=== PATIENT | female | born 2000 | race African-American/Black ===

== ENCOUNTER 2024-06-11 23:47 | Inpatient (IN) | payer OTHER ==
[2024-06-12] MEDS ORDERED: NA CHLORIDE 0.9% 1,000 ML ONE (00:08)
[2024-06-12] MEDS ORDERED: ONDANSETRON 4 MG/2 ML VIAL ONE (00:08)
[2024-06-12 00:40] LABS: Albumin 4.6 g/dL (3.4-5.0); Albumin/Globulin Ratio 1.2 (1.1-1.8); Anion Gap 23.9 mEq/L (5.0-15.0); Bilirubin Total 0.6 mg/dL (0.2-1.0); Globulin 3.9 g/dL (2.3-3.5); Potassium 2.9 mEq/L (3.5-5.1); Protein, Total 8.5 g/dL (6.4-8.2)
[2024-06-12 00:44] LABS: Sqamous Epithelial 20-50 /HPF (None Seen); Urine Bacteria None Seen /HPF (<20); Urine Bilirubin NEGATIVE (Negative); Urine Blood Negative (Negative); Urine Clarity Extremely Turbid (Clear); Urine Color Light-Yellow (Yellow); Urine Culture Reflex Order NOT NEEDED; Urine Glucose NEGATIVE (Negative); Urine Ketones 3+ (Negative); Urine Microscopic Reflex YN ORDER UMIC; Urine Mucus Slight /HPF (None Seen); Urine Nitrite NEGATIVE (Negative); Urine Protein TRACE (Negative); Urine RBC <5 /HPF (None Seen); Urine Urobilinogen Normal (Normal); Urine WBC <5 /HPF (<5)
[2024-06-12 00:51] LABS: Absolute Basophils 0.2 K/uL (0-0.5); Absolute Lymphocytes (CBC) 1.6 K/uL (0.7-4.9); Absolute Monocytes 0.6 K/uL (0.1-1.3); Absolute Neutrophil 19.2 K/uL (1.8-8.0); Basophils % 0.8 % (0-1.3); Eosinophils % 0.1 % (0-4.4); Hematocrit 45.9 % (36.0-45.0); Hemoglobin 15.3 g/dL (12.0-15.0); Lymphocytes % 7.6 % (15.3-44.8); MCHC 33.3 g/dL (32.0-36.0); MCV 93.1 fL (80-100); MPV 10.8 fL (7.6-11.3); Monocytes % 2.7 % (3.3-12.3); Neutrophils % 88.8 % (41.7-73.7); Platelets 266 thou/uL (152-406); RBC Red Blood Cell Count 4.93 M/uL (3.86-4.86); Red Cell Distribution Width 13.8 % (12.1-15.2)
[2024-06-12] MEDS ORDERED: Ringers Lactate 1,000 ML IV ONE (00:55)
[2024-06-12] MEDS ORDERED: POTASSIUM 25 MEQ EFFERV TAB ONE (00:55)
[2024-06-12 01:05] LABS: BETA HYDROXYBUTYRATE 0.86 mmol/L (0.02-0.27)
[2024-06-12 01:17] LABS: Band Neutrophils 4 % (0-1); Differential Total Cells Count 100; Lymphocytes 17 % (15-42); Monocytes 1 % (0-10); Reactive Lymphocytes 1 %; Segmented Neutrophils 77 % (40-80)
[2024-06-12 01:18] LABS: Blood Morphology Comment NOT SEEN (NOT SEEN); Platelet Estimate ADEQ
[2024-06-12] MEDS ORDERED: D10W 250 ML IV ONE (01:20)
--- NOTE | 2024-06-12 01:53 | EDPHYS ---
Physician Documentation [facility] Name: Hollie Wade Age: 23 yrs Sex: Female : 2000 Arrival Date: 06/11/2024 Time: 23:47 Bed 2 Private MD: ED Physician Rufino Alcantar HPI: 06/11 23:59 This 23 yrs old Black Female presents to ER via Unassigned with complaints of ETOH sb4 Abuse, Low Blood Sugar. 06/12 00:06 patient called EMS this evening for possible alcohol poisoning, states that she took sb4 several tequila shots this evening and did not eat any food. when EMS arrived, she was laying in the grass outside. they checked her blood sugar and it was 26. patient denies any history of diabetes, hypoglycemic episodes, chronic medical problems or daily medications. 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 - Infectious Disease History:: Denies. - Social history:: Smoking status: Patient denies any tobacco usage or history of. Patient uses street drugs. - Coronavirus screen:: The patient has NOT traveled to [place] in the past 14 days. ROS: 00:06 Constitutional: Negative for fever, chills, and weight loss, sb4 00:06 Abdomen/GI: Positive for nausea and vomiting, 00:06 All other systems are negative, Exam: 00:08 Constitutional: This is a well developed, well nourished patient who is awake, alert, sb4 and in no acute distress. Head/Face: Normocephalic, atraumatic. Eyes: Extra-ocular motions intact. Periorbital areas with no swelling, redness, or edema. Cardiovascular: Regular rate and rhythm with a normal S1 and S2. Respiratory: No increased work of breathing, no retractions or nasal flaring. Abdomen/GI: Soft, non-tender, no distension. Skin: Warm, dry with normal turgor. Normal color with no rashes, no lesions, and no evidence of cellulitis. Vital Signs: 00:17 BP 88 / 67; Pulse 73; Resp 18; Pulse Ox 95% on R/A; Weight 63.5 kg (R); Height 5 ft. 0 mt4 in. ; 00:51 BP 101 / 60; Pulse 72; Resp 19; Temp 97.5(O); Pulse Ox 100% on R/A; mt4 01:30 BP 123 / 98; Pulse 64; Resp 17; Pulse Ox 100% ; mt4 03:00 BP 108 / 53; Pulse 67; Resp 16; Pulse Ox 100% on R/A; mt4 03:34 BP 123 / 98; Pulse 61; Resp 16; Pulse Ox 100% on R/A; mt4 00:17 Body Mass Index 27.34 (63.50 kg, 152.4 cm) mt4 Jason Coma Score: 00:33 Eye Response: spontaneous(4). Motor Response: obeys commands(6). Verbal Response: mt4 oriented(5). Total: 15. 02:27 Eye Response: spontaneous(4). Motor Response: obeys commands(6). Verbal Response: mt4 oriented(5). Total: 15. MDM: 06/11 23:52 Medical Screening Exam initiated sb4 06/12 01:52 Data reviewed: vital signs, nurses notes, EMS record, lab test result(s), I have sb4 discussed the patient's presentation/case with the attending Emergency Department Physician; and as a result, I will admit patient. Consideration of Admission/Observation Patient was admitted/placed on observation. Counseling: I had a detailed discussion with the patient and/or guardian regarding the historical points, exam findings, and any diagnostic results supporting the discharge/admit diagnosis, lab results, the need for further work-up and treatment in the hospital. 06/11 23:50 Order name: CBC with Diff; Complete Time: 01:18 sb4 06/11 23:50 Order name: CMP; Complete Time: 00:45 sb4 06/11 23:50 Order name: Lipase; Complete Time: 00:45 sb4 06/11 23:50 Order name: Test, Urine; Complete Time: 00:45 sb4 06/11 23:50 Order name: Urinalysis w/ reflexes; Complete Time: 00:45 sb4 06/12 00:06 Order name: ETOH Level; Complete Time: 00:39 sb4 06/12 00:48 Order name: Lactate w/ 2H reflex if indic.; Complete Time: 02:30 sb4 06/12 00:48 Order name: Magnesium; Complete Time: 01:05 sb4 06/12 00:48 Order name: BHB; Complete Time: 01:05 sb4 06/12 00:54 Order name: Manual Differential; Complete Time: 01:18 EDMS 06/12 01:01 Order name: Glucose, Ancillary Testing; Complete Time: 01:02 EDMS 06/12 01:06 Order name: Arterial Blood Gas: VBG; Complete Time: 04:27 sb4 06/12 02:00 Order name: Glucose, Ancillary Testing; Complete Time: 02:02 EDMS 06/12 02:32 Order name: Lactate w/ 2H reflex if indic.; Complete Time: 04:27 rt 06/12 02:39 Order name: Creatine Phosphokinase; Complete Time: 04:27 EDMS 06/12 02:39 Order name: Lipid Profile EDMS 06/12 02:39 Order name: Liver (Hepatic) Function; Complete Time: 04:27 EDMS 06/12 02:39 Order name: Magnesium EDMS 06/12 02:39 Order name: Phosphorus EDMS 06/12 02:44 Order name: BETA HYDROXYBUTYRATE EDMS 06/12 03:41 Order name: Phosphorus; Complete Time: 04:27 EDMS 06/12 03:41 Order name: Magnesium; Complete Time: 04:27 EDMS 06/11 23:50 Order name: IV Saline Lock; Complete Time: 00:17 sb4 06/11 23:50 Order name: Labs collected and sent; Complete Time: 00:17 sb4 06/12 00:42 Order name: PO challenge; Complete Time: 01:32 sb4 06/12 00:49 Order name: Misc. Order: VBG; Complete Time: 01:19 sb4 Administered Medications: 00:15 Drug: Ondansetron IVP 4 mg IVP once; over 2 minutes Route: IVP; Site: left forearm; mt4 01:31 Follow up: Response: No adverse reaction mt4 00:15 Drug: NS 0.9% IV 1000 ml IV at 1 bolus Per protocol; to be given as a bolus over 60 mt4 minutes Route: IV; Rate: 1 bolus; Site: left forearm; 01:32 Follow up: Response: No adverse reaction; IV Status: Completed infusion; IV Intake: mt4 1000ml 01:31 Drug: Potassium PO Effervescent Tablet 50 mEq PO once; dissolve in 4 ounces of water or mt4 juice Route: PO; 03:05 Follow up: Response: No adverse reaction mt4 01:31 Drug: D10 in Water IVP 250 ml IVP once Route: IVP; Site: right forearm; mt4 02:17 Follow up: Response: No adverse reaction mt4 02:26 Drug: Lactated Ringers Solution IV 1000 ml IV at 150 ml/hr continuous Route: IV; Rate: mt4 150 ml/hr; Site: right antecubital; 03:04 Follow up: Response: No adverse reaction; IV Status: Infusion continued mt4 Disposition: 01:54 Critical Care:. sb4 03:54 Co-signature as Attending Physician, Rufino Alcantar MD. rt 03:54 I reviewed the patient's care provided by the Advanced Practice Provider and agree with rt the diagnosis and treatment plan. Disposition Summary: 06/12/24 01:52 Hospitalization Ordered Notes: Hospitalization Status: Inpatient Admission sb4 Provider: Shiv Montoya Location: Intensive Care Unit sb4 Condition: Fair sb4 Problem: new sb4 Symptoms: are unchanged sb4 Bed/Room Type: Standard sb4 Room Assignment: 2-(06/12/24 03:27) mt4 Diagnosis - Acidosis sb4 - Hypoglycemia, unspecified sb4 - Hypokalemia sb4 Forms: - Medication Reconciliation Form sb4 - SBAR form sb4 - Leadership Thank You Letter sb4 Critical care time excluding procedures: 01:54 Critical care time: Bedside Care: 15 minutes, Consultation: 20 minutes. Total time: 35 sb4 minutes Signatures: Dispatcher [employer] Belen Che, SHARRI PAHermelindoC sb4 Rfuino Alcantar MD MD rt Braden Tenorio RN RN mt4 Corrections: (The following items were deleted from the chart) 06/11 23:50 23:50 CBC+H.LAB.BRZ ordered. EDMS EDMS 23:50 23:50 COMPREHENSIVE METABOLIC PANEL+C.LAB.BRZ ordered. EDMS EDMS 23:50 23:50 LIPASE+C.LAB.BRZ ordered. EDMS EDMS 23:50 23:50 Test, Urine+UC.LAB.BRZ ordered. EDMS EDMS 23:50 23:50 Urinalysis+U.LAB.BRZ ordered. EDMS EDMS 06/12 00:07 00:06 patient called EMS this evening for possible alcohol poisoning. sb4 sb4 02:49 02:39 Lactate w/ 2H reflex if indic. ordered. EDMS EDMS 02:50 02:33 LACTATE+C.LAB.BRZ ordered. EDMS EDMS 03:27 01:52 sb4 mt4
--- NOTE | 2024-06-12 01:53 | ER ---
Nurse's Notes [facility] Name: Hollie Wade Age: 23 yrs Sex: Female : 2000 Arrival Date: 06/11/2024 Time: 23:47 Bed 2 Private MD: Diagnosis: Acidosis;Hypoglycemia, unspecified;Hypokalemia Presentation: 06/12 00:17 Chief complaint: Patient states: Patient states called EMS because she was not feeling mt4 good, EMS reported patient was outside waiting for EMS when they arrived, patient states been drinking off and on all day, feels dehydrated. EMS states patients blood sugar reading 24 during transport, a dose of glucagon was given. per EMS. BS reading upon arrival 34. Patient denies any past medical hx, denies DM, nausea and vomiting observed during assessment. Coronavirus screen: At this time, the client does not indicate any symptoms associated with coronavirus-19. Ebola Screen: Patient denies exposure to infectious person. Initial Sepsis Screen: Does the patient meet any 2 criteria? RR > 20 per min. Systolic BP < 90 mmHg. Yes Does the patient have a suspected source of infection? No. Patient's initial sepsis screen is negative. Risk Assessment: Do you want to hurt yourself or someone else? Patient reports no desire to harm self or others. Onset of symptoms was June 11, 2024. 00:17 Method Of Arrival: EMS: [facility] mt4 00:17 Acuity: KT 3 mt4 Triage Assessment: 00:25 General: Appears in no apparent distress. comfortable, Behavior is calm, cooperative, mt4 appropriate for age, quiet. Pain: Complains of pain in face Pain currently is 3 out of 10 on a pain scale. 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 Gait is steady, Speech is normal, Facial symmetry appears normal. Cardiovascular: Reports nausea, vomiting. Respiratory: Airway is patent Respiratory effort is even, unlabored, Respiratory pattern is regular, symmetrical. GI: Abdomen is non-distended, Pt is actively vomiting clear fluid, Bowel sounds present X 4 quads. Abd is non tender X 4 quads. : Denies. Derm: No signs and/or symptoms reported regarding the dermatologic system. Musculoskeletal: Capillary refill < 3 seconds, Range of motion: intact in all extremities. 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 - Infectious Disease History:: Denies. - Social history:: Smoking status: Patient denies any tobacco usage or history of. Patient uses street drugs. - Coronavirus screen:: The patient has NOT traveled to [place] in the past 14 days. Screenin:33 [facility] ED Fall Risk Assessment (Adult) History of falling in the last 3 months, mt4 including since admission No falls in past 3 months (0 pts) Confusion or Disorientation No (0 pts) Intoxicated or Sedated Yes (3 pts) Impaired Gait No (0 pts) Mobility Assist Device Used No (0 pt) Altered Elimination No (0 pt) Score/Fall Risk Level 3 or more points = High Risk. Abuse screen: Denies injuries from another. Nutritional screening: No deficits noted. Tuberculosis screening: No symptoms or risk factors identified. Exposure risk/Travel Screening: None identified. Assessment: 00:31 Reassessment: see triage note. mt4 02:27 Reassessment: Patient is alert, oriented x 3, equal unlabored respirations, skin mt4 warm/dry/pink. General: Appears in no apparent distress. comfortable, Behavior is calm, cooperative, appropriate for age. Pain: Denies pain. 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 Speech is normal, Facial symmetry appears normal. Cardiovascular: Capillary refill < 3 seconds. Respiratory: Airway is patent Respiratory effort is even, unlabored, Respiratory pattern is regular, symmetrical. GI: Abdomen is flat, non-distended, Pt is actively vomiting clear fluid, Bowel sounds present X 4 quads. : Urine is clear. Psych: 02:00 [place] Suicide Severity Screening: In the past month, have you wished you were mt4 or wished you could go to sleep and not wake up? Patient responds "No." "In the past month, have you actually had any thoughts of killing yourself?" Patient responds "no." "In your lifetime, have you ever done anything, started to do anything, or prepared to do anything to end your life?" Patient responds "no.". [place] Suicide Severity Screening: In the past month, have you wished you were or wished you could go to sleep and not wake up? "In the past month, have you actually had any thoughts of killing yourself?" "In your lifetime, have you ever done anything, started to do anything, or prepared to do anything to end your life?". Subjective:. Objective: Patient is cooperative, guarded, Speech is normal, Affect is appropriate. Interventions:. Safety Checks: Pt denies substance abuse. 04:13 Commitment: none. mt4 Vital Signs: 00:17 BP 88 / 67; Pulse 73; Resp 18; Pulse Ox 95% on R/A; Weight 63.5 kg (R); Height 5 ft. 0 mt4 in. ; 00:51 BP 101 / 60; Pulse 72; Resp 19; Temp 97.5(O); Pulse Ox 100% on R/A; mt4 01:30 BP 123 / 98; Pulse 64; Resp 17; Pulse Ox 100% ; mt4 03:00 BP 108 / 53; Pulse 67; Resp 16; Pulse Ox 100% on R/A; mt4 03:34 BP 123 / 98; Pulse 61; Resp 16; Pulse Ox 100% on R/A; mt4 00:17 Body Mass Index 27.34 (63.50 kg, 152.4 cm) mt4 Jason Coma Score: 00:33 Eye Response: spontaneous(4). Motor Response: obeys commands(6). Verbal Response: mt4 oriented(5). Total: 15. 02:27 Eye Response: spontaneous(4). Motor Response: obeys commands(6). Verbal Response: mt4 oriented(5). Total: 15. ED Course: 06/11 23:49 Patient arrived in ED. sb4 23:49 Belen Mendoza [facility]-C [facility] sb4 23:49 Rufino Alcantar MD is Attending Physician. sb4 06/12 00:04 Braden Tenorio, MAN is Primary Nurse. mt4 00:25 Triage completed. mt4 00:25 Arm band placed on right wrist. mt4 00:31 No apparent distress. Resting quietly. Awaiting lab results. mt4 00:31 Patient has correct armband on for positive identification. Bed in low position. Call mt4 light in reach. Side rails up X 1. Provided Education on: labs and meds . Client placed on continuous cardiac and pulse oximetry monitoring. NIBP monitoring applied. Door closed. Lights dimmed. Warm blanket given. Pillow given. Verbal reassurance given. Assisted with bedpan. 00:31 No provider procedures requiring assistance completed. Inserted saline lock: 22 gauge mt4 in left forearm, using aseptic technique. Blood collected. Flushed with 10 mL NS. Patient maintains SpO2 saturation greater than 95% on room air. 01:34 Inserted saline lock: 22 gauge in right forearm, using aseptic technique. Blood mt4 collected. Flushed with 10 mL NS. 01:52 Shiv Montoya MD is Hospitalizing Provider. sb4 02:27 Client placed on continuous cardiac and pulse oximetry monitoring. NIBP monitoring mt4 applied. Door closed. Lights dimmed. Warm blanket given. Pillow given. Verbal reassurance given. 02:27 LEFT forearm IV 22 Gauge discontinued due to leakage, IV removed cather intact upon mt4 removal and dressing applied. 03:03 Inserted saline lock: 22 gauge in left forearm, using aseptic technique. Blood mt4 collected. Flushed with 10 mL NS. Administered Medications: 00:15 Drug: Ondansetron IVP 4 mg IVP once; over 2 minutes Route: IVP; Site: left forearm; mt4 01:31 Follow up: Response: No adverse reaction mt4 00:15 Drug: NS 0.9% IV 1000 ml IV at 1 bolus Per protocol; to be given as a bolus over 60 mt4 minutes Route: IV; Rate: 1 bolus; Site: left forearm; 01:32 Follow up: Response: No adverse reaction; IV Status: Completed infusion; IV Intake: mt4 1000ml 01:31 Drug: Potassium PO Effervescent Tablet 50 mEq PO once; dissolve in 4 ounces of water or mt4 juice Route: PO; 03:05 Follow up: Response: No adverse reaction mt4 01:31 Drug: D10 in Water IVP 250 ml IVP once Route: IVP; Site: right forearm; mt4 02:17 Follow up: Response: No adverse reaction mt4 02:26 Drug: Lactated Ringers Solution IV 1000 ml IV at 150 ml/hr continuous Route: IV; Rate: mt4 150 ml/hr; Site: right antecubital; 03:04 Follow up: Response: No adverse reaction; IV Status: Infusion continued mt4 Medication: 00:33 VIS not applicable for this client. mt4 Intake: 01:32 IV: 1000ml; Total: 1000ml. mt4 Outcome: 01:52 Decision to Hospitalize by Provider. sb4 04:07 Admitted to ICU accompanied by nurse, via stretcher, with oxygen, on monitor, with cp4 chart, 04:07 Condition: stable 04:07 Instructed on the need for admit, 04:08 Patient left the ED. cp4 Signatures: Belen Mendoza PA-C PA-C sb4 Lissa Cadena cp4 Braden Tenorio, RN RN mt4
[2024-06-12] MEDS ORDERED: LORAZEPAM 1 MG TABLET PO PRN (02:30)
[2024-06-12] MEDS ORDERED: ONDANSETRON 4 MG/2 ML VIAL IV PRN (02:30)
[2024-06-12] MEDS ORDERED: D10W 125 ML IV PRN (02:38)
[2024-06-12] MEDS ORDERED: GLUCAGON 1 MG/VIAL IM PRN (02:38)
[2024-06-12] MEDS ORDERED: METOCLOPRAMIDE 10 MG/2mL INJ IV PRN (02:41)
--- NOTE | 2024-06-12 02:48 | P.HP ---
Certification for Inpatient With expected LOS: <2 Midnights Practitioner: I am a practitioner with admitting privileges, knowledge of patient current condition, hospital course, and medical plan of care. Services: Services provided to patient in accordance with Admission requirements found in Title 42 Section 412.3 of the Code of Federal Regulations Patient History Date of Service: 06/12/24 Reason for admission: alcoholic ketoacidosis History of Present Illness: 23-year-old woman with no significant past medical history presented to the emergency department tonight complaining of abdominal pain, and N/V that began earlier today. The patient states she had an unknown amount of tequila. Her last drink was around 5 PM on 06/11/2024. The patient states since this time she has vomited more than 3 times, but denies vomiting any blood. Also, the patient complains of generalized abdominal pain. It was reported the patient was found by EMS laying on the ground for an unknown amount of time. Upon arrival to the emergency room, the patient was found to have a blood glucose around 44. She denies fever, cough, diaphoresis, tremor, and headache at this time. The patient is still actively vomiting, and ABG/lactic acid pending. Home medications list reviewed: Yes (none) - Past Medical/Surgical History Diabetic: No Past Medical History: Patient denies medical history Past Surgical History: Patient denies surgical history - Social History Smoking Status: Never smoker Alcohol use: Yes Review of Systems Gastrointestinal: Nausea, Vomiting, Abdominal Pain, No Distention Physical Examination - Vital Signs Temperature: 97.4 F Blood Pressure: 108/53 Pulse: 67 Respirations: 18 Pulse Ox (%): 100 (room air) - Physical Exam General: Alert, Oriented x3 HEENT: Atraumatic, Normocephalic Neck: JVD not distended Respiratory: Normal air movement Cardiovascular: No edema, Regular rate/rhythm, No gallops, No rubs, No murmurs Gastrointestinal: Normal bowel sounds, Non-distended, Tenderness (all abd quadrants) Musculoskeletal: No swelling, No erythema, No tenderness, No warmth Neurological: Normal strength at 5/5 x4 extr, Sensation intact - Studies Laboratory Data (last 24 hrs) 06/12/24 06/12/24 06/12/24 00:04 00:04 00:04 WBC 21.70 H Hgb 15.3 H Hct 45.9 H Plt Count 266 Sodium 141 Potassium 2.9 L BUN 16 Creatinine 0.91 Glucose 44 L* Magnesium 2.0 Total Bilirubin 0.6 AST 27 ALT 27 Alkaline Phosphatase 51 Lipase 19 Assessment and Plan - Problems (Diagnosis) (1) Alcoholic ketoacidosis Current Visit: Yes Status: Acute - Plan Alcoholic ketoacidosis: Admit to ICU CIWA protocol ordered Thiamine daily ordered Folate daily ordered Multivitamin daily ordered Insulin sliding scale Zofran and Reglan ordered UTI with ketones present Repeat beta hydroxybutyrate lab ABG/lactic acid pending Gap present EtOH 84 Lipase wnl Hypokalemia: K 2.9-repleted in ED Repeat K and other labs to trend - Advance Directives Does patient have a Living Will: No Does patient have a Durable POA for Healthcare: No
[2024-06-12] MEDS: LORAZEPAM 1 MG TABLET PO SCH (03:00)
[2024-06-12 03:40] LABS: ALT/SGPT 25 U/L (13-56); AST/SGOT 27 U/L (15-37); Albumin 4.6 g/dL (3.4-5.0); Albumin/Globulin Ratio 1.2 (1.1-1.8); Alkaline Phosphatase 53 U/L (45-117); Bilirubin Total 0.4 mg/dL (0.2-1.0); Creatine Phosphokinase 121 U/L (26-192); Globulin 3.7 g/dL (2.3-3.5); Magnesium 1.7 mg/dL (1.6-2.4); Phosphorus 3.3 mg/dL (2.5-4.9); Protein, Total 8.3 g/dL (6.4-8.2)
[2024-06-12 03:41] LABS: Bilirubin Direct < 0.2 mg/dL (0-0.2); Bilirubin Indirect, Calculated 0.2 mg/dL (0.2-0.8)
[2024-06-12 03:45] LABS: Arterial Blood Carboxyhemoglob 0.1 % (0-1.5); Blood Gas Oxyhemoglobin 91.9 % (94-97); Blood O2 Saturation 93.8 % (92-98.5)
[2024-06-12 03:46] LABS: Blood Gas THB 16.1 g/dl (12-18)
[2024-06-12] MEDS: FOLIC ACID 1 MG, MULTIVITAMINS INJ 10 ML, THIAMINE HCL 100 MG in NA CHLORIDE 0.9% 1,000 ML IV ONE ×2 (05:00→08:40)
[2024-06-12 05:08] VITALS: O2SAT 100
[2024-06-12] MEDS: FLU (Fluarix Triv) TS24-25(6MOS UP)/PF 45 MCG/0.5 ML Syringe IM ONE (07:21)
[2024-06-12] MEDS: INSULIN REGULAR (HUMAN) 100 UNIT/ML SQ SCH (07:30)
[2024-06-12] MEDS ORDERED: MULTIVITAMIN TAB PO SCH (09:00)
[2024-06-12] MEDS ORDERED: FOLIC ACID 1 MG TABLET PO SCH (09:00)
[2024-06-12] MEDS ORDERED: THIAMINE HCL 100 MG TABLET PO SCH (09:00)
[2024-06-12 09:24] LABS: Absolute Eosinophils 0.1 K/uL (0-0.5); Absolute Lymphocytes (CBC) 1.6 K/uL (0.7-4.9); Absolute Neutrophil 11.6 K/uL (1.8-8.0); Basophils % 0.2 % (0-1.3); Eosinophils % 0.5 % (0-4.4); Hematocrit 40.8 % (36.0-45.0); Hemoglobin 13.7 g/dL (12.0-15.0); Lymphocytes % 11.1 % (15.3-44.8); MCH 30.9 pg (27.0-35.0); MCHC 33.7 g/dL (32.0-36.0); MCV 91.6 fL (80-100); MPV 10.6 fL (7.6-11.3); Monocytes % 6.8 % (3.3-12.3); Neutrophils % 81.4 % (41.7-73.7); Nucleated Red Blood Cells % 0.1 % (0-0); Platelets 209 thou/uL (152-406); RBC Red Blood Cell Count 4.45 M/uL (3.86-4.86); Red Cell Distribution Width 13.5 % (12.1-15.2)
[2024-06-12 09:37] LABS: Magnesium 1.8 mg/dL (1.6-2.4); Phosphorus 2.7 mg/dL (2.5-4.9)
--- NOTE | 2024-06-12 13:13 | P.PN ---
Date of Service: 06/12/24 Patient seen and examined Patient is awake and alert, appears to be in a better mood. Patient has been experiencing intermittent hypoglycemia. Hypoglycemia likely related to alcohol ingestion. Lactic acidosis resolved. Start regular diet. IV thiamine and dextrose. Patient states she is willing to stay until medically stable. [facility] behavioral evaluation once medically stable.
[2024-06-12 14:13] LABS: Magnesium 1.7 mg/dL (1.6-2.4)
[2024-06-12] MEDS: D5 0.9 NS 1,000 ML IV SCH (14:28)
[2024-06-12] MEDS: MAGNESIUM SULFATE 1 gm IVPB 1 GM/100 ML BAG IV ONE (16:52)
[2024-06-12] MEDS: ARIPiprazole 5 MG TAB PO SCH (20:30)
[2024-06-12] MEDS ORDERED: ARIPiprazole 5 MG TAB PO SCH (21:00)
[2024-06-13] MEDS: TRAZODONE 50 MG TABLET PO PRN (00:36)
[2024-06-13 05:28] LABS: Absolute Basophils 0.1 K/uL (0-0.5); Absolute Eosinophils 0.1 K/uL (0-0.5); Absolute Monocytes 0.5 K/uL (0.1-1.3); Absolute Neutrophil 4.4 K/uL (1.8-8.0); Basophils % 0.8 % (0-1.3); Eosinophils % 0.9 % (0-4.4); Hematocrit 37.8 % (36.0-45.0); Hemoglobin 12.6 g/dL (12.0-15.0); Lymphocytes % 37.4 % (15.3-44.8); MCH 31.1 pg (27.0-35.0); MCHC 33.4 g/dL (32.0-36.0); MPV 11.2 fL (7.6-11.3); Neutrophils % 54.9 % (41.7-73.7); Platelets 161 thou/uL (152-406); RBC Red Blood Cell Count 4.06 M/uL (3.86-4.86); Red Cell Distribution Width 13.4 % (12.1-15.2)
[2024-06-13 05:30] VITALS: BMI 29.7
[2024-06-13 05:47] LABS: Albumin 3.4 g/dL (3.4-5.0); Albumin/Globulin Ratio 1.1 (1.1-1.8); Anion Gap 9.6 mEq/L (5.0-15.0); Bilirubin Total 0.8 mg/dL (0.2-1.0); Potassium 3.6 mEq/L (3.5-5.1); Protein, Total 6.4 g/dL (6.4-8.2)
[2024-06-13 06:17] LABS: Magnesium 1.9 mg/dL (1.6-2.4); Phosphorus 2.3 mg/dL (2.5-4.9)
[2024-06-13] MEDS: POTASSIUM CL SA 10 MEQ TAB PO ONE (06:36)
[2024-06-13] MEDS: POTASS/SODIUM PHOSPHATE 1 PKT POWD.PACK PO SCH (06:36)
[2024-06-13 07:18] VITALS: TEMP 98
[2024-06-13] MEDS: THIAMINE HCL 100 MG TABLET PO SCH (07:28)
[2024-06-13] MEDS: FOLIC ACID 1 MG TABLET PO SCH (07:29)
[2024-06-13] MEDS: VENLAFAXINE HCL XR 37.5MG CAP PO SCH (07:29)
[2024-06-13] MEDS: MULTIVITAMIN TAB PO SCH (07:35)
[2024-06-13] MEDS ORDERED: ESCITALOPRAM 20 MG TAB PO SCH (09:00)
--- NOTE | 2024-06-13 09:04 | P.DS ---
Admission Date: 06/12/24 Discharge Date: 06/13/24 Disposition: ROUTINE DISCHARGE Discharge Condition: FAIR Reason for Admission: alcoholic ketoacidosis Brief History of Present Illness: 23-year-old woman with no significant past medical history presented to the emergency department tonight complaining of abdominal pain, and N/V. The patient states she drank an unknown amount of tequila after which she vomited multiple times and developed abdominal pain. It was reported the patient was found by EMS laying on the ground for an unknown amount of time. Upon arrival to the emergency room, the patient was found to have a blood glucose around 44 and actively vomiting. Blood work also shows severe lactic acidosis. Patient was hospitalized to ICU for further management. Hospital Course: Diagnosis Alcohol intoxication Hypoglycemia Lactic acidosis Leukocytosis Suicide attempt Patient was admitted to the ICU and aggressively hydrated with IV fluid, treated with IV dextrose for hypoglycemia and placed on IV thiamine and folic acid. Hypoglycemia is likely related to alcohol ingestion. Lactic acidosis resolved with IV hydration. Patient was awake and alert during the hospital stay and was started on regular diet. There was reported suicide attempt with alcohol. Patient denied any suicide ideation. She was evaluated by psychiatry Dr. Hopkins, patient determined not to be suicidal. Risk of alcohol poisoning discussed. Dr. Hopkins prescribed Abilify, trazodone and venlafaxine. Hypoglycemia resolved, patient currently asymptomatic with stable vitals. Patient deemed stable for discharge. Vital Signs/Physical Exam: Temp Pulse Resp BP Pulse Ox 98.0 F 72 12 111/77 100 06/13/24 07:00 06/13/24 08:00 06/13/24 08:00 06/13/24 08:00 06/13/24 08:00 General: Alert, In no apparent distress, Oriented x3 HEENT: Mucous membr. moist/pink, Sclerae nonicteric Neck: Supple, JVD not distended Respiratory: Clear to auscultation bilaterally, Normal air movement Cardiovascular: No edema, Regular rate/rhythm, Normal S1 S2 Gastrointestinal: Normal bowel sounds, Soft and benign, Non-distended, No tenderness Musculoskeletal: No swelling Integumentary: No rashes, No cyanosis Neurological: Normal strength at 5/5 x4 extr, Cranial nerves 3-12 intact Laboratory Data at Discharge: WBC 8.10 thou/uL (4.3-10.9) 06/13/24 04:59 Hgb 12.6 g/dL (12.0-15.0) D 06/13/24 04:59 Hct 37.8 % (36.0-45.0) 06/13/24 04:59 Plt Count 161 thou/uL (152-406) 06/13/24 04:59 Sodium 139 mEq/L (136-145) 06/13/24 04:59 Potassium 3.6 mEq/L (3.5-5.1) 06/13/24 04:59 BUN 10 mg/dL (7-18) 06/13/24 04:59 Creatinine 0.69 mg/dL (0.55-1.02) 06/13/24 04:59 Glucose 92 mg/dL (74-106) 06/13/24 04:59 Phosphorus 2.3 mg/dL (2.5-4.9) L 06/13/24 04:59 Magnesium 1.9 mg/dL (1.6-2.4) 06/13/24 04:59 Total Bilirubin 0.8 mg/dL (0.2-1.0) 06/13/24 04:59 AST 17 U/L (15-37) 06/13/24 04:59 ALT 21 U/L (13-56) 06/13/24 04:59 Alkaline Phosphatase 38 U/L (45-117) L D 06/13/24 04:59 Triglycerides 94 mg/dL (<150) 06/13/24 04:59 Cholesterol 112 mg/dL (<200) 06/13/24 04:59 HDL Cholesterol 38 mg/dL (40-60) L 06/13/24 04:59 Cholesterol/HDL Ratio 2.95 06/13/24 04:59 Lipase 19 U/L (13-75) 06/12/24 00:04 Home Medications: ARIPiprazole [Abilify*] 2.5 mg PO BEDTIME #30 tab 06/13/24 Multivit,Ther Iron,Ca,FA & Min [Centrum Tablet*] 1 tab PO DAILY #30 tab 06/13/24 Thiamine HCl [Vitamin B-1*] 100 mg PO DAILY #30 tab 06/13/24 Trazodone [Desyrel*] 25 mg PO BEDTIME PRN PRN #30 tab 06/13/24 Venlafaxine HCl *Xr* [Effexor XR*] 37.5 mg PO DAILY #30 cap 06/13/24 New Medications: ARIPiprazole [Abilify*] 2.5 mg PO BEDTIME #30 tab Multivit,Ther Iron,Ca,FA & Min [Centrum Tablet*] 1 tab PO DAILY #30 tab Trazodone [Desyrel*] 25 mg PO BEDTIME PRN PRN #30 tab PRN Reason: Insomnia Venlafaxine HCl *Xr* [Effexor XR*] 37.5 mg PO DAILY #30 cap Thiamine HCl [Vitamin B-1*] 100 mg PO DAILY #30 tab Physician Discharge Instructions: Follow up with Dr. Santana in 1-2 weeks Diet: Regular Activity: Ad tati Followup: Jacob Santana [ACTIVE - CAN ADMIT] - NONE,NONE [Primary Care Provider] -
[2024-06-13 09:12] VITALS: BP 113/72
[2024-06-14] MEDS ORDERED: LORAZEPAM 1 MG TABLET PO SCH (03:00)
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
== END 2024-06-13 10:15 | disposition home or self-care (01) | DRG 918 ==
LOC: ER 23:47 → ERHOLD 06-12 02:30 → 3RD-ICU 06-12 03:41
PROVIDERS: ADMIT Internal Medicine; ATTEND Internal Medicine
DX: T51.8X1A Toxic effect of other alcohols, accidental (unintentional), initial encounter (principal); E87.29 Other acidosis; N39.0 Urinary tract infection, site not specified; F33.3 Major depressive disorder, recurrent, severe with psychotic symptoms; F10.180 Alcohol abuse with alcohol-induced anxiety disorder; F10.14 Alcohol abuse with alcohol-induced mood disorder; E16.1 Other hypoglycemia; E87.6 Hypokalemia; E86.0 Dehydration; F10.129 Alcohol abuse with intoxication, unspecified; T14.91XA Suicide attempt, initial encounter; D72.829 Elevated white blood cell count, unspecified; F43.10 Post-traumatic stress disorder, unspecified; F41.9 Anxiety disorder, unspecified; F42.9 Obsessive-compulsive disorder, unspecified; G47.00 Insomnia, unspecified; R06.03 Acute respiratory distress; Z62.810 Personal history of physical and sexual abuse in childhood; Z23 Encounter for immunization; Y90.4 Blood alcohol level of 80-99 mg/100 ml
CPT/HCPCS: 36415; 80048; 80053; 80061; 80076; 80143; 80179; 81001; 81025; 82010; 82077; 82550; 82805; 82947; 83605; 83690; 83735; 84100; 85025; 96361; 96374; 99285; J2405; J3411; J3475; J7030; J7042; J7120